=== PATIENT | male | born 1980 | race Caucasian/White ===

== ENCOUNTER 2017-01-24 11:48 | Emergency (ER) | payer BC ==
[2017-01-24] MEDS ORDERED: Famotidine IV* 10 MG/ML 2 ML (20 mg) IV SLOW PU ONE (14:07)
[2017-01-24] MEDS ORDERED: NS 0.9% 1000 ML* 1,000 ML IV ONE (14:07)
[2017-01-24 15:28] VITALS: BP 117/68
--- NOTE | 2017-01-24 17:40 | ED ---
Belinda Gomez Thomas, scribed for Stuart Hernandez MD on 01/24/17 at 1204 . Allergic Reaction/Systemic - HPI Summary HPI Summary: The pt is a 36 y/o M accompanied by GLADYS c/o an allergic reaction s/p being stung by hornets an unknown number of times today at 11:00. Prior to arrival, the patient was given epinephrine 0.3 milligrams x2, Benadryl, and normal saline by EMS. Pt additionally c/o dizziness, erythema secondary to hornet stings, near-syncope (at the time of the stings), and it feels like a pill is stuck in my throat. Pt denies any pain, CP, SOB, and itchiness ( although he had some at the time of sting). PMHx: previously healthy. PSHx: none. SHx: occasional drinking, no illicit drugs, no smoking. FHx: CHF. This is the patients first allergic reaction to insect stings other than localized swelling. - History of Current Complaint Chief Complaint: EDAllergicReaction Time Seen by Provider: 01/24/17 11:55 Hx Obtained From: Patient, EMS Onset/Duration: Sudden Onset, Started minutes ago - today at 11:00, Still Present Timing: Constant Pain Intensity: 0 Pain Scale Used: 0-10 Numeric Character: Pruritus - prior to arrival but none in the ED Aggravating Factor(s): Nothing Alleviating Factor(s): Epinephrine, Other - IV fluids, Benadryl Associated Signs And Symptoms: Positive: Other: - POS: "it feels like a pill is stuck in my throat", dizziness, near-syncope, erythema secondary to bee stings - Allergies/Home Medications Allergies/Adverse Reactions: Allergies Allergy/AdvReac Type Severity Reaction Status Date / Time Bee Venom Allergy Severe Anaphylatic Verified 01/24/17 11:55 Shock Sulfa Antibiotics Allergy Unknown Unknown Verified 01/24/17 11:55 Reaction Details PMH/Surg Hx/FS Hx/Imm Hx Previously Healthy: Yes Cardiovascular History: Denies: Hx Myocardial Infarction Respiratory History: Denies: Hx Chronic Obstructive Pulmonary Disease (COPD) - Surgical History Surgery Procedure, Year, and Place: none Infectious Disease History: No Infectious Disease History: Denies: Traveled Outside the [place] in Last 30 Days - Family History Known Family History: Positive: Other - POS: CHF - Social History Alcohol Use: Occasionally Hx Substance Use: No Substance Use Type: Reports: None Hx Tobacco Use: No Smoking Status (MU): Never Smoked Tobacco Review of Systems Constitutional: Negative Negative: Fever Negative: Chest Pain Negative: Shortness Of Breath Positive: Other - POS: erythema secondary to hornet stings; NEG: pruritus ( although he had pruritus SMUDGER) Neurological: Other - POS: dizziness, near-syncope (at the scene of the stings) All Other Systems Reviewed And Are Negative: Yes Physical Exam - Summary Physical Exam Summary: VITAL SIGNS: Reviewed. GENERAL: Patient is a well-developed and nourished male who is lying comfortable in the stretcher. He is anxious. Patient is not in any acute respiratory distress. HEAD AND FACE: No signs of trauma. ~No ecchymosis, hematomas or skull depressions. No sinus tenderness. EYES: PERRLA, EOMI x 2, No injected conjunctiva, no nystagmus. EARS: Hearing grossly intact. Ear canals and tympanic membranes are within normal limits. MOUTH: There is no swelling of the lips. There is no feeling that the throat is closing. Oropharynx within normal limits. NECK: Supple, trachea is midline, no adenopathy, no JVD, no carotid bruit, no c- spine tenderness, neck with full ROM. CHEST: Symmetric, no tenderness at palpation LUNGS: There is no SOB or wheezing. Clear to auscultation bilaterally. No wheezing or crackles. CVS: Regular rate and rhythm, S1 and S2 present, no murmurs or gallops appreciated. ABDOMEN: Soft, non-tender. No signs of distention. No rebound no guarding, and no masses palpated. Bowel sounds are normal. EXTREMITIES: FROM in all major joints, no edema, no cyanosis or clubbing. NEURO: Alert and oriented x 3. No acute neurological deficits. Speech is normal and follows commands. SKIN: There are multiples areas of erythema secondary to hornet stings. Dry and warm Triage Information Reviewed: Yes Vital Signs On Initial Exam: Initial Vitals Temp Pulse Resp BP Pulse Ox 97.8 F 88 17 142/67 96 01/24/17 11:51 01/24/17 11:51 01/24/17 11:51 01/24/17 11:51 01/24/17 11:51 Vital Signs Reviewed: Yes Diagnostics - Vital Signs Vital Signs Temp Pulse Resp BP Pulse Ox 01/24/17 11:51 97.8 F 88 17 142/67 96 - Laboratory Lab Statement: Any lab studies that have been ordered have been reviewed, and results considered in the medical decision making process. Re-Evaluation - Re-Evaluation First Eval Re-Evaluation Time: 13:31 Change: Improved Allergic Reaction Course/Dx - Course Assessment/Plan: The pt is a 36 y/o M accompanied by GLADYS c/o an allergic reaction s/p being stung by hornets an unknown number of times today at 11:00. Prior to arrival, the patient was given epinephrine 0.3 milligrams x2, Benadryl , and normal saline by EMS. Pt additionally c/o dizziness, erythema secondary to hornet stings, near-syncope (at the time of the stings), and it feels like a pill is stuck in my throat. Pt denies any pain, CP, SOB, and itchiness ( although he had some at the time of sting). PMHx: previously healthy. PSHx: none. SHx: occasional drinking, no illicit drugs, no smoking. FHx: CHF. This is the patients first allergic reaction to insect stings other than localized swelling. Before the patient arrived to the ED, the patient was given two doses of epinephrine, decadron, and Benadryl. The patients symptoms improved and he was feeling better. In the ED the patient was given IV fluids and Pepcid and symptoms did not return. The patient has remained hemodynamically stable. The patient doesnt report any tongue swelling, lip swelling, or feeling like his throat is closing, or any SOB. Therefore, the patient will be discharged home with follow up by PCP. The patient was given a prescription for EpiPen, prednisone, Bendaryl, and Pepcid. I discussed all the findings and test results with the patient. Patient was instructed to return to the emergency room immediately if any of the symptoms return or worsens. Plan of care was discussed with the patient and understands and agrees. All questions were answered at patient satisfaction. There were no further complaints or concerns. - Diagnoses Provider Diagnoses: Allergic reaction to insect sting Discharge - Discharge Plan Condition: Stable Disposition: HOME Prescriptions: Epinephrine [Epipen 2-Parveen] 0.3 mg IM ONCE #1 kit Famotidine TAB* [Pepcid 20 MG TAB*] 40 mg PO DAILY #20 tab diPHENhydraMINE PO* [Benadryl PO 25 MG TAB*] 25 mg PO TID PRN #30 tab PRN Reason: Allergy Symptoms predniSONE TAB* [Deltasone TAB*] 40 mg PO DAILY #20 tab Patient Education Materials: Insect Bite or Sting (ED) Referrals: [facility] – [place] PHYSICIAN REFERRAL [Outside] - 3 Days No Primary Care Phys,NOPCP [Primary Care Provider] - The documentation as recorded by the Belinda cottrell Thomas accurately reflects the service I personally performed and the decisions made by David deal Walter, MD.
== END 2017-01-24 15:27 | disposition home or self-care (01) ==
LOC: ED 11:48
DX: T63.451A Toxic effect of venom of hornets, accidental (unintentional), initial encounter (principal); Y92.9 Unspecified place or not applicable; R42 Dizziness and giddiness; R55 Syncope and collapse; Z88.2 Allergy status to sulfonamides
CPT/HCPCS: 96365; 99283

== ENCOUNTER → 2018-07-06 11:32 | Emergency (ER) | payer BC, OTHER ==
--- NOTE | 2018-07-06 13:02 | ED ---
Lower Extremity - HPI Summary HPI Summary: Patient is a 30-year-old male presenting to the ED with a left lower extremity pain. He states just [employer] he was playing pickle ball when he felt 10/10 pain into the calf muscle. He was unable to ambulate immediately following. He arrives into the ED as a 2/10 pain constant and aching. Denies any numbness or tingling. Denies any ecchymosis. He states he is otherwise healthy and takes no medications. - History of Current Complaint Chief Complaint: EDExtremityLower Stated Complaint: LEFT FOOT PAIN Time Seen by Provider: 07/06/18 11:49 Pain Intensity: 2 - Allergies/Home Medications Allergies/Adverse Reactions: Allergies Allergy/AdvReac Type Severity Reaction Status Date / Time bee venom protein (honey bee) Allergy Anaphylatic Verified 07/06/18 11:57 Shock Sulfa (Sulfonamide Allergy Unknown Verified 07/06/18 11:57 Antibiotics) Reaction Details PMH/Surg Hx/FS Hx/Imm Hx Cardiovascular History: Denies: Hx Myocardial Infarction Respiratory History: Denies: Hx Chronic Obstructive Pulmonary Disease (COPD) - Surgical History Surgery Procedure, Year, and Place: none Infectious Disease History: No Infectious Disease History: Denies: Traveled Outside the [place] in Last 30 Days - Family History Known Family History: Positive: Other - POS: CHF - Social History Alcohol Use: Occasionally Hx Substance Use: No Substance Use Type: Reports: None Hx Tobacco Use: No Smoking Status (MU): Never Smoked Tobacco Physical Exam Vital Signs On Initial Exam: Initial Vitals Temp Pulse Resp BP Pulse Ox 99.1 F 92 17 131/73 97 07/06/18 11:34 07/06/18 11:34 07/06/18 11:34 07/06/18 11:34 07/06/18 11:34 Diagnostics - Vital Signs Vital Signs Temp Pulse Resp BP Pulse Ox 07/06/18 11:34 99.1 F 92 17 131/73 97 - Laboratory Lab Statement: Any lab studies that have been ordered have been reviewed, and results considered in the medical decision making process. Discharge - Discharge Plan Condition: Stable Disposition: HOME Prescriptions: traMADol TAB* [Ultram*] 50 mg PO Q8H PRN #6 tab MDD 3 PRN Reason: Pain Patient Education Materials: Achilles Tendon Rupture (ED) Referrals: Angelo Macias MD [Medical Doctor] - (appt 230pm on Thursday with Dr. Swift) No Primary Care Phys,NOPCP [Primary Care Provider] - Additional Instructions: Follow up with orthopedics Call today to make an appt Keep splint on Do not get wet Do not bear weight Use crutches at all times Elevate when possible Ibuprofen 600mg three times daily for discomfort - Billing Disposition and Condition Condition: STABLE Disposition: Home
[2018-07-06 13:23] VITALS: BP 143/85
== END | disposition home or self-care (01) ==
LOC: ED 11:32
DX: M79.672 Pain in left foot (principal); X58.XXXA Exposure to other specified factors, initial encounter; Y93.73 Activity, racquet and hand sports; Y92.9 Unspecified place or not applicable; Z88.2 Allergy status to sulfonamides
CPT/HCPCS: 99282

== ENCOUNTER 2018-07-13 11:25 | Emergency (ER) | payer BC ==
--- NOTE | 2018-07-13 11:59 | UC ---
Throat Pain/Nasal Bry HPI - HPI Summary HPI Summary: 38 yo male presents with intermittent sore throat and "white spots" on the back of his throat for the last 3 months. He is concerned because he is scheduled for ankle surgery in 2 days and wonders if his symptoms are something concerning. He is eating and drinking well. Denies fever, chills, sinus symptoms , cough, rash. - History of Current Complaint Stated Complaint: SORE THROAT Time Seen by Provider: 07/13/18 11:59 Hx Obtained From: Patient Onset/Duration: Gradual Onset Severity: Mild Pain Intensity: 3 Pain Scale Used: 0-10 Numeric - Allergies/Home Medications Allergies/Adverse Reactions: Allergies Allergy/AdvReac Type Severity Reaction Status Date / Time bee venom protein (honey bee) Allergy Anaphylatic Verified 07/13/18 12:07 Shock Sulfa (Sulfonamide Allergy Unknown Verified 07/13/18 12:07 Antibiotics) Reaction Details PMH/Surg Hx/FS Hx/Imm Hx - Additional Past Medical History Additional PMH: None - Surgical History Surgical History: None - Family History Known Family History: Positive: Other - POS: CHF - Social History Occupation: Employed Full-time Lives: With Family Alcohol Use: Occasionally Substance Use Type: None Smoking Status (MU): Never Smoked Tobacco Review of Systems All Other Systems Reviewed And Are Negative: Yes Constitutional: Positive: Negative Skin: Positive: Negative Eyes: Positive: Negative ENT: Positive: Sore Throat Respiratory: Positive: Negative Cardiovascular: Positive: Negative Gastrointestinal: Positive: Negative Neurovascular: Positive: Negative Neurological: Positive: Negative Psychological: Positive: Negative Physical Exam - Summary Physical Exam Summary: GENERAL: NAD. WDWN. No pain distress. SKIN: No rashes, sores, lesions, or open wounds. HEENT: Head: AT/NC Eyes: EOM intact. Conjunctiva clear without inflammation or discharge. Ears: Hearing grossly normal. TMs intact, no bulging, erythema, or edema. Nose: Nasal mucosa pink and moist. NTTP maxillary and frontal sinus. Throat: Scant very mild thin white post nasal drip in back of throat. Posterior oropharynx without exudates, erythema, or tonsillar enlargement. Uvula midline. NECK: Supple. Nontender. No lymphadenopathy. CHEST: CTAB. No r/r/w. No accessory muscle use. Breathing comfortably and in no distress. CV: RRR. Without m/r/g. Pulses intact. Cap refill <2seconds NEURO: Alert. PSYCH: Age appropriate behavior. Triage Information Reviewed: Yes Vital Signs: Vital Signs: Temp Pulse Resp BP Pulse Ox 99.5 F 100 16 133/85 100 07/13/18 12:30 07/13/18 12:30 07/13/18 12:30 07/13/18 12:30 07/13/18 12:30 Vital Signs Reviewed: Yes Throat Pain/Nasal Course/Dx - Course Course Of Treatment: I discussed with the patient that his "white spots" in his throat appear to be post-nasal drip. He seemed apprehensive with that dx and wished for a second opinion. I asked Dr. Corona who examined his throat and agrees with above dx. Will draw for CBC given his upcoming surgery with a very low suspicion for any underlying infection. Advised to try zyrtec or claritin OTC for his post nasal drip. - Differential Dx/Diagnosis Provider Diagnosis: Post-nasal drip Discharge - Sign-Out/Discharge Documenting (check all that apply): Patient Departure All imaging exams completed and their final reports reviewed: No Studies - Discharge Plan Condition: Stable Disposition: HOME Referrals: No Primary Care Phys,NOPCP [Primary Care Provider] - Additional Instructions: If you develop a fever, shortness of breath, chest pain, new or worsening symptoms - please call your PCP or go to the ED. Your blood pressure was high at todays visit. Please see your primary provider within 4 weeks for recheck and re-evaluation. Your throat appears normal and the drainage/white in the back of throat is most consistent with post-nasal drip. We have drawn some labwork today to check for infection and will have results tomorrow. Please notify your surgeon the day of surgery of your throat discomfort. - Billing Disposition and Condition Condition: STABLE Disposition: Home
[2018-07-13 12:30] VITALS: BP 133/85
[2018-07-13 16:02] LABS: ABS Basophils 0 10^3/ul (0-0.2); ABS Eosinophils 0 10^3/ul (0-0.6); ABS Lymphocytes 1.3 10^3/ul (1.0-4.8); ABS Monocytes 0.5 10^3/ul (0-0.8); ABS Nucleated RBC 0 10^3/ul; Eosinophil % 0.7 %; Hematocrit 46 % (42-52); Hemoglobin 15.9 g/dl (14.0-18.0); Mean Corpuscular HGB Conc 34 g/dl (31-36); Mean Corpuscular Hemoglobin 33 pg (27-31); Mean Corpuscular Volume 95 fL (80-94); Mean Platelet Volume 7.9 fL (7.4-10.4); Nucleated Red Blood Cells % 0; Platelet Count 258 10^3/ul (150-450); Red Blood Count 4.87 10^6/ul (4.00-5.40); Red Cell Distribution Width 13 % (10.5-15); White Blood Count 5.9 10^3/ul (3.5-10.8)
== END 2018-07-13 12:30 | disposition home or self-care (01) ==
LOC: UCEAST 11:25
DX: R09.82 Postnasal drip (principal); J02.9 Acute pharyngitis, unspecified; Z88.2 Allergy status to sulfonamides; Z91.030 Bee allergy status
CPT/HCPCS: 36415; 85025; 99211; G0463